=== PATIENT | male | born 1950 | race Caucasian/White ===

== ENCOUNTER 2018-03-15 08:21 | Emergency (ER) | payer MEDICARE ==
[2018-03-15 08:23] VITALS: BP 182/84; PULSE 82; RESP 16; TEMP 97.5; O2SAT 97
--- NOTE | 2018-03-15 09:35 | PD ---
HPI Chief Complaint: Pain: Acute or Chronic Time Seen by Provider: 09:02 Travel History International Travel<30 days: No Contact w/Intl Traveler<30days: No Traveled to known affect area: No History of Present Illness HPI 67 yo male complains of pain in the left hip to left knee and the left ankle. It has been bothersome for 8 days. He has a history of spine surgery with hardware. He states the leg pain is even worse than that. It has been difficult to walk although he does spend most of his day walking. Pain has an electric quality. Aleve and Goody's powder did not help. He denies recent trauma. PFSH Past Medical History Medical History: Denies Significant Hx Tetanus Vaccination: > 5 Years Influenza Vaccination: No Social History Alcohol Use: Yes (BEER ON WEEKENDS) Tobacco Use: No Substance Use: No Allergies-Medications (Allergen,Severity, Reaction): Coded Allergies: No Known Allergies (Unverified , 03/15/18) Reported Meds & Prescriptions Reported Meds & Active Scripts Active Diclofenac Potassium 50 Mg Tab 50 Mg PO TID PRN Review of Systems General / Constitutional: No: Fever Eyes: No: Diploplia Cardiovascular: No: Chest Pain or Discomfort, Irregular Rhythm Respiratory: No: Cough Gastrointestinal: No: Nausea Neurologic: No: Weakness, Focal Abnormalities, Coordination Problem, Tremor, Ataxia Physical Exam Narrative GENERAL: 67-year-old male well-nourished well-developed no acute distress Vital Signs Date Time Temp Pulse Resp B/P (MAP) Pulse Ox O2 Delivery O2 Flow Rate FiO2 03/15/18 09:13 18 03/15/18 08:23 97.5 82 16 182/84 (116) 97 SKIN: Warm and dry. HEAD: Normocephalic. EYES: No scleral icterus. No injection or drainage. NECK: Supple, trachea midline. No JVD or lymphadenopathy. CARDIOVASCULAR: Regular rate and rhythm without murmurs, gallops, or rubs. RESPIRATORY: Breath sounds equal bilaterally. No accessory muscle use. GASTROINTESTINAL: Abdomen soft, non-tender, nondistended. MUSCULOSKELETAL: 2+ dorsalis pedis on the left side. There is no bony tenderness about the premises of the knee or ankle. There is no erythema induration warmth or swelling about the left calf muscles or anywhere in the left leg to suggest a DVT. BACK: Nontender without obvious deformity. No CVA tenderness. Data Data Last Documented VS Vital Signs Date Time Temp Pulse Resp B/P (MAP) Pulse Ox O2 Delivery O2 Flow Rate FiO2 03/15/18 09:13 18 03/15/18 08:23 97.5 82 182/84 (116) 97 Orders Orders Tibia/Fibula (Ap/Lat) (03/15/18 09:11) Acetamin-Hydrocod 325-5 Mg ([place] 5-325 (03/15/18 09:45) Ed Discharge Order (03/15/18 10:34) MDM Medical Decision Making Medical Screen Exam Complete: Yes Emergency Medical Condition: Yes Medical Record Reviewed: Yes Differential Diagnosis Neuropathy, claudication, stress fracture Narrative Course The patient is ambulatory. Imaging is unremarkable. The exam is unimpressive and nonspecific. Scripts as below. Diagnosis Primary Impression: Leg pain Qualified Codes: M79.605 - Pain in left leg Referrals: [facility] call for appointment Med/Other Pt SpecificInfo: Prescription(s) given Scripts Diclofenac Potassium (Diclofenac Potassium) 50 Mg Tab 50 MG PO TID Y for PAIN SCALE 6 TO 10, #30 TAB 0 Refills Prov: Guillermo Meyer MD 03/15/18 Disposition: 01 DISCHARGE HOME Condition: Stable Guillermo Meyer MD March 15, 2018 09:35
[2018-03-15] MEDS ORDERED: DICL50TA PO (09:42)
[2018-03-15] MEDS ORDERED: ACETAMINOPHEN/HYDROcodone 325 MG/5 MG TAB PO ONE (09:45)
--- NOTE | 2018-03-15 09:52 | RADRPT ---
EXAM DATE: 03/15/2018 9:47 AM EDT AGE/SEX: 67 years / Male INDICATIONS: Left radiating tibia/fibula pain, no known injury. CLINICAL DATA: This is the patient's initial encounter. Patient reports that signs and symptoms have been present for 1 week and indicates a pain score of 7/10. MEDICAL/SURGICAL HISTORY: None. None. COMPARISON: No prior [facility] exams available for comparison. FINDINGS: Bony structures are intact and in normal alignment. Osseous density is normal. Soft tissues are unr emarkable. No radiopaque foreign bodies seen. Vascular calcifications are seen. CONCLUSION: No acute abnormality is seen. Electronically signed by: Deuce Hdz MD 03/15/2018 9:50 AM EDT
== END 2018-03-15 10:56 | disposition home or self-care (01) ==
LOC: NEPD 08:21
DX: M79.605 Pain in left leg (principal)
CPT/HCPCS: 73590; 99283